=== PATIENT | female | born 1955 | race Caucasian/White ===

== ENCOUNTER 2022-07-22 01:32 | Emergency (ER) | payer MEDICARE, OTHER, SELFPAY ==
[2022-07-22 01:33] VITALS: BMI 36.7
--- NOTE | 2022-07-22 01:48 | ED_ITS ---
HPI - CPR General Stated Complaint: cardiac arrest Time Seen by Provider: 07/22/22 01:33 Source: EMS Mode of arrival: EMS Limitations: other History of Present Illness HPI narrative: Patient comes to the emergency room via ambulance in cardiac arrest. EMS reports that the family reported that the patient had been using heroin and cocaine earlier today. They estimate that the patient was down anywhere between 30-60 minutes. When EMS arrived, patient was in asystole. Patient arrived to emergency room still in asystole. Multiple EKGs done by the paramedics shows a systole. EMS/fire from [place] reported that they noticed that the family did not seem concerned that the patient was in cardiac arrest and being brought to the emergency room with poor prognosis Related Data Allergies Allergy/AdvReac Type Severity Reaction Status Date / Time penicillin V Allergy Unknown Verified 02/10/18 00:00 Penicillins [PENICILLINS] Allergy Unknown YEAST Unverified 11/23/19 16:41 INFECTION acids Allergy Unknown Uncoded 02/10/18 00:00 butter Allergy Unknown Uncoded 02/10/18 00:00 dust mites Allergy Unknown Uncoded 02/10/18 00:00 Effexor Allergy Unknown Uncoded 02/10/18 00:00 grease Allergy Unknown Uncoded 02/10/18 00:00 oil Allergy Unknown Uncoded 02/10/18 00:00 peanut butter Allergy Unknown Uncoded 02/10/18 00:00 spices Allergy Unknown Uncoded 02/10/18 00:00 Review of Systems Review of Systems: Yes Unobtainable due to mental condition [facility] Past Medical History Medical History (Updated 07/22/22 @ 01:57 by Dayna Aguilar MD) Chronic kidney disease, stage 4 (severe) Diabetes High cholesterol Hypertension Social History Social History Advance Directives: No Advance Directives Information Provided: No Physical Exam Const: Other: Appearance: Unresponsive Eyes: Dilated fixed and reactive to light bilaterally ENT: Large amount of vomitus in the oropharynx Neck: Normal inspection. No palpable step-offs CVS: Paul/compression seen progress Respiratory: Patient being ventilated with an Ambu bag Abdomen: Grossly distended Skin: Cold, mottled Extremities: No injuries Neuro: Unresponsive Psych: Unresponsive Medical Decision Making Medical Decision Making MDM Narrative: -only know is that the patient had been using heroin and cocaine before she was found down by the family. -estimated down time 30-60 minutes per family -EMS found her to be in asystole and arrived in the emergency room still in asystole -patient got a total of 50 minutes of CPR, multiple epinephrine pushes, no shockable rhythms -time of was called at 01:39 -at this time, 01:53, we do not have any information about family coming to see the patient. -cause of unknown, likely overdose? -I discussed the case with the medical records clerk, patient will be accepted by them, case [id number] Discharge Plan Discharge Clinical Impression: Cardiac arrest Patient Disposition:
--- NOTE | 2022-07-22 01:55 | MHC.EDTECH ---
call out to director medical safety at [phone], spoke to christel
--- NOTE | 2022-07-22 01:58 | PC.NURSE ---
Spoke with [facility]. Pt is a potential candidate for tissue donation upon family notification. .
--- NOTE | 2022-07-22 02:02 | MHC.EDTECH ---
product manager medical device accepted [id number]
--- NOTE | 2022-07-22 03:02 | PC.NURSE ---
Jc Matias with [facility] states he will be out to take photos of pt due to possible overdose. ETA over 1 hour.
[2022-07-22 06:59] LABS: Glucose, Whole Blood 573 mg/dL (60-115)
== END 2022-07-22 05:38 | disposition expired ==
PROVIDERS: Emergency Provider Emergency Medicine
DX: I46.9 Cardiac arrest, cause unspecified (principal)
CPT/HCPCS: 82947; 96374; 96375; 99283; 99284; J0171